=== PATIENT | female | born 1990 | race African-American/Black ===

== ENCOUNTER 2019-05-03 12:57 | Emergency (ER) | payer OTHER ==
[2019-05-03] MEDS ORDERED: ONDANSETRON 4 MG (ODT) TAB ONE (13:27)
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
[2019-05-03 14:55] VITALS: BP 128/89; TEMP 98; O2SAT 98
== END 2019-05-03 14:28 | disposition home or self-care (01) ==
LOC: ER 12:57
DX: S16.1XXA Strain of muscle, fascia and tendon at neck level, initial encounter (principal); V49.50XA Passenger injured in collision with unspecified motor vehicles in traffic accident, initial encounter; F31.9 Bipolar disorder, unspecified; Z91.013 Allergy to seafood
CPT/HCPCS: 70450; 72125; 99284